=== PATIENT | male | born 1955 | race Caucasian/White ===

== ENCOUNTER 2016-09-17 16:03 | Emergency (ER) | payer BC, OTHER ==
[~2016-09-17] VITALS: Ht 180.3 cm; Wt 129.7 kg
[~2016-09-17 16:03] MED LIST: ACET-732 PO; ASPI-557 PO; CITA-49 PO; HYDR-4246 PO; IBUP-1724 PO; LISI-621 PO; MELO-273 PO; POLY17PO18 PO
[2016-09-17 16:06] VITALS: TEMP 98.9; Ht 180.3 cm; Wt 129.7 kg
--- OUTSIDE RECORDS SUMMARY | 2016-09-17 16:08 | XMS REPORT | Continuity of Care Document ---
Author Author [facility] Organization [facility] Address Unknown Phone Unavailable Support Name Relationship Address Phone ELIAS MOREON FACS, MD Caregiver [address] [place] [address] [place] [address] Unavailable GABBI CAM MD Caregiver [address] [place] [address] [place] [address] Unavailable DOMINIK BLANKENSHIP Next Of Kin [address] [place] [address] CP Insurance Providers Guarantor Marah Blankenship Address [address] [place] [address] CP Email DENIED/NO TO PT PORTAL [facility] Policy Number [id number] Subscriber's Name JuliannaMarah Calle Relationship 18 Self Group Number [id number] Payer Workers Compensation Policy Number [id number] Subscriber's Name TeddyMoy coronadoney Alva Relationship 18 Self Advance Directives Directive Response Recorded Date/Time Ordered Resuscitation Status Full Code 04/08/16 3:02pm Resuscitation Documents on File No 04/09/16 10:35am DPOA for Healthcare Only No 04/09/16 10:35am Living Will No 04/09/16 10:35am Problems Active Problems Medical Problem Onset Date Status Abnormal laboratory test result Unknown Acute Cough Unknown Acute Dyspnea Unknown Acute Pulmonary edema Unknown Acute Medications Current Home Medications Medication Dose Units Route Directions Days Qty Instructions Start Date Acetaminophen (Tylenol) 500 Mg Tablet 500 Mg Oral As Needed 05/05 Aspirin (Aspir 81) 81 Mg Tablet. 1 Tab Oral Daily 04/07/16 Citalopram Hydrobromide (Celexa) 20 Mg Tablet 20 Mg Oral Daily Hydrocodone/Acetaminophen ([place] 5-325 Tablet) 5-325 Tablet 1-2 Tab Oral Every 5 Hours as needed for Pain 40 Tablet 04/09/16 Ibuprofen 200 Mg Tablet 800 Mg Oral Every 6 Hours as needed for Pain 10 Days 160 Tablet 04/09/16 Lisinopril 20 Mg Tablet 20 Mg Oral Daily 08/09/14 Meloxicam 7.5 Mg Tablet 7.5 Mg Oral Daily 04/07/16 Polyethylene Glycol 3350 (Healthylax) 17 Gm Powd.pack 17 Gm Oral Daily for Constipation 14 Days 04/09/16 Past Home Medications Medication Directions Ordered Status None , 02/20/09 Discontinued Social History Social History Problem Response Recorded Date/Time Onset Date Status Reason for Hospitalization left inguinal hernia repair 04/09/2016 4:07pm Not Applicable Not Applicable Chewing Tobacco Status No 04/09/2016 10:36am Not Applicable Not Applicable Hx Substance Use No 04/09/2016 10:36am Not Applicable Not Applicable Hx Alcohol Use No 04/09/2016 10:36am Not Applicable Not Applicable Has the pt used tobacco in the last 12 months No 04/09/2016 10:36am Not Applicable Not Applicable Tobacco Usage none 11/16/2013 4:05am Not Applicable Not Applicable Query Response Start Date Stop Date Smoking Status Never smoker Hospital Discharge Instructions Instructions: Care Instructions: I was in the hospital because (patient own words): left inguinal hernia repair Discharge Diet: REGULAR Discharge Activity: Do not drive, operate machinery for 24 hours after surgery or while taking pain medication. No lifting more than 25 pounds for 4 weeks. Follow Up Appointments: Follow up with Dr. Moreno April 28 Pending Lab / Results: Will be notified Expected Signs/Symptoms: a "healing ridge" along the incision will form after 5-7 days. This will take many months to "soften" and go away. There is occasionally swelling and "bruised" appearance to the scrotum/penis, this will subside. Notify Physician If: 1. Call your surgeon if you are having problems relating to your surgery at [phone]. 2. Problems such as: Temp above 101.5 degrees You develop redness, excessive swelling of the incision, increasing pain or excessive foul smelling drainage. 3. If the office is closed, call [facility] at [phone] and have your Surgeon paged. During Business Hours:: Call your surgeon at at [phone]. After Business Hours:: If the office is closed, call [facility] at [phone] and have your Surgeon paged. Pain Management/Treatment: Follow prescriptions as prescribed Wound/Incision Care: Leave incision open to air. Do not pick or rub off the glue. Condition at time of discharge: Good Plan of Care Discharge Date 04/09/16 5:23pm Instructions/Education Provided [facility] Prescriptions See Medication Section Functional Status Query Response Date Recorded Ability to complete ADL's impeded by No change April 09, 2016 10:35am Allergies, Adverse Reactions, Alerts No known allergies. Immunizations Query Response on File Recorded Date/Time Hx Influenza Vaccination No 04/09/16 10:36am Hx Pneumococcal Vaccination No 04/09/16 10:36am Hx Influenza Vaccination No 04/09/16 10:36am Hx Tetanus Diptheria Y 200908/08/14 10:20pm Vital Signs Acute Vital Signs Vital Response Date/Time Temperature (Fahrenheit) 97.4 deg F (96.8 - 99.1) 04/09/2016 4:40pm Temperature (Calculated Celsius) 36.21072 degrees C (36.0 - 37.3) 04/09/2016 4:40pm Temperature Source Temporal 04/09/2016 4:40pm Pulse Rate (adult) 84 bpm (60 - 100) 04/09/2016 4:40pm Respiratory Rate 20 breaths/min (10 - 20) 04/09/2016 4:40pm O2 Sat by Pulse Oximetry 95 % (90 - 100) 04/09/2016 4:40pm Oxygen Delivery Method Room Air 04/09/2016 4:40pm Oxygen Flow Rate 2.00 L/min 04/09/2016 3:40pm Blood Pressure 159/81 mm Hg 04/09/2016 4:40pm Blood Pressure Source Automatic Cuff 04/09/2016 4:40pm Height (Feet) 5 feet 04/09/2016 10:15am Height (Inches) 11.00 inches 04/09/2016 10:15am Weight (Kilograms) 135.500 kg 04/09/2016 10:15am Body Mass Index (BMI) 41.7 04/09/2016 10:15am Results No known relevant diagnostic tests, laboratory data and/or discharge summary. Procedures Procedure Status Date Provider(s) Inguinal hernia repair Completed 04/09/16 ELIAS MORENO MD, FACS, CWS Encounters Encounter Location Arrival/Admit Date Discharge/Depart Date Attending Provider Departed [facility] 04/09/16 9:37am 04/09/16 5: 23pm ELIAS MORENO FACSS
--- OUTSIDE RECORDS SUMMARY | 2016-09-17 16:08 | XMS REPORT | Referral Summary ---
Author Author [facility] Organization [facility] Address Unknown Phone Unavailable Care Team Providers Care Brake Tester Name Role Phone Rachael Gray Primary Care Physician [phone] Encounter VC Date(s): 02/06/16 - 02/06/16 [facility] [address] [place] [address] Discharge Disposition: 01-Home or Self Care Attending Physician: Parker Gray MD Admitting Physician: Parker Gray MD Vital Signs Most recent to 1 oldest [Reference Range]: Blood Pressure 152/96 mmHg [90-140/60-90 mmHg] *HI* (02/06/16 9:52 AM) Problem List Condition Effective Dates Status Health Status Informant Acute Active confusion(Confirmed) Acute Active pain(Confirmed) Allergies(Confirmed) Active Angina(Confirmed) Active Asthma(Confirmed) Active Bleeding Active precautions(Confirme d)1 Bronchitis(Confirmed Active ) Chest wall Active pain(Confirmed) Contact dermatitis Active and other eczema, due to unspecified cause(Confirmed) GERD Active (gastroesophageal reflux disease)(Confirmed) Head Active trauma(Confirmed)2 Hearing Active loss(Confirmed) Hypertension(Confirm Active ed) Ingrown right Active greater toenail(Confirmed) Depression(Confirmed Active ) Morbid Active patient obesity(Confirmed) Severe obstructive Active sleep apnea(Confirmed) Osteoarthritis(Confi Active rmed) Rotator cuff tear, Active bilateral(Confirmed) Sinus Active infection(Confirmed) Sleep Active apnea(Confirmed) Ulcers(Confirmed) Active 1Problem added automatically by system based on initiation of Bleeding Precautions Plan of Care 2closed fracture nasal bones Allergies, Adverse Reactions, Alerts No Known Medication Allergies Medications aspirin 81 mg oral tablet 1 tabs, Oral, Daily, # 30 tabs, 0 Refill(s) Start Date: 08/10/14 Status: Ordered citalopram 20 mg oral tablet See Instructions, TAKE ONE TABLET BY MOUTH ONCE DAILY MUST LAST 30 DAYS., # 30 tabs, eRx: [facility], TAKE ONE TABLET BY MOUTH ONCE DAILY MUST LAST 30 DAYS. Start Date: 01/21/16 Status: Ordered Excedrin Migraine tabs, Oral, q6hr, 0 Refill(s) Start Date: 10/31/14 Status: Ordered lisinopril 10 mg oral tablet See Instructions, TAKE ONE TABLET BY MOUTH ONCE DAILY, # 30 tabs, eRx: [facility], TAKE ONE TABLET BY MOUTH ONCE DAILY Start Date: 01/21/16 Status: Ordered loratadine 10 mg, Oral, Daily, as needed for allergy symptoms, 0 Refill(s) Start Date: 08/09/14 Status: Ordered mefloquine 250 mg oral tablet 250 mg 1 tabs, Oral, qWeek, as directed by physician., X 10 weeks, # 10 tabs, 0 Refill(s), [facility], 2 weeks before trip, during trip and 4 weeks after trip., 1 tabs Oral qWeek,x10 weeks,Instr:as directed by physician. Start Date: 02/06/16 Stop Date: 04/16/16 Status: Ordered meloxicam 7.5 mg oral tablet See Instructions, TAKE ONE TABLET BY MOUTH TWICE DAILY, # 60 tabs, eRx: [facility], TAKE ONE TABLET BY MOUTH TWICE DAILY Start Date: 01/21/16 Status: Ordered triamcinolone 0.1% topical ointment 0.25 g, Topical, TID, # 30 g, 2 Refill(s), [facility] Start Date: 09/01/15 Status: Ordered Results No data available for this section Immunizations Vaccine Date Refusal Reason tetanus/diphth/pertuss (Tdap) adult/adol 02/06/16 tetanus-diphth toxoids (Td) adult/adol 12/26/97 Procedures Procedure Date Related Diagnosis Body Site S/P colonoscopy1 02/21/09 S/P sinus surgery 1998 H/O circumcision H/O lumpectomy, testicle2 H/O right knee surgery x2 S/P shoulder surgery, right 1WNL; repeat 10 years 2benign; kicked in groin Social History Social History Type Response Smoking Status Never smoker Assessment and Plan No data available for this section
--- OUTSIDE RECORDS SUMMARY | 2016-09-17 16:09 | XMS REPORT | Referral Summary ---
Author Author [facility] Organization [facility] Address Unknown Phone Unavailable Care Team Providers Care Power Driven Brush Maker Name Role Phone Rachael Gray Primary Care Physician [phone] Encounter VC Date(s): 04/28/16 - 04/28/16 [facility] [address] [place] [address] [place] [id number] Discharge Diagnosis: S/P inguinal hernia repair Discharge Disposition: 01-Home or Self Care Attending Physician: Ayden Castellano MD Admitting Physician: Ayden Castellano MD Vital Signs Most recent to 1 oldest [Reference Range]: Temperature Tympanic 36.5 degC [36.6-38.1 degC] *LOW* (04/28/16 2:39 PM) Problem List Condition Effective Dates Status Health [...] MUST LAST 30 DAYS., # 30 tabs, 4 Refill(s), eRx: [facility], TAKE ONE TABLET BY MOUTH ONCE DAILY MUST LAST 30 DAYS. Start Date: 03/23/16 Status: Ordered Excedrin Migraine tabs, Oral, q6hr, 0 Refill(s) Start Date: 10/31/14 Status: Ordered lisinopril 20 mg oral tablet See Instructions, TAKE ONE TABLET BY MOUTH ONCE DAILY, # 90 tabs, eRx: [facility] Start Date: 04/27/16 Status: Ordered loratadine 10 mg, Oral, Daily, as needed for allergy symptoms, 0 Refill(s) Start Date: 08/09/14 Status: Ordered meloxicam 7.5 mg oral tablet See Instructions, TAKE ONE TABLET BY MOUTH TWICE DAILY, # 60 tabs, eRx: [facility], TAKE ONE TABLET BY MOUTH TWICE DAILY Start Date: 03/26/16 Status: Ordered Quail 5 mg-325 mg oral tablet 1 tabs, Oral, q6hr, as needed for pain, # 30 tabs, 0 Refill(s) Start Date: 04/14/16 Status: Ordered triamcinolone 0.1% topical ointment 0.25 g, Topical, TID, # 30 g, 2 Refill(s), Pharmacy: [facility] Start Date: 09/01/15 Status: Ordered Results No data available for this section Immunizations Given and Recorded Vaccine Date Status Refusal Reason tetanus/diphth/pertuss (Tdap) adult/adol 02/06/16 Given tetanus-diphth toxoids (Td) adult/adol 12/26/97 Given Procedures Procedure Date Related Diagnosis Body Site Repair of inguinal hernia1 04/28/16 S/P colonoscopy2 02/21/09 S/P sinus surgery 1998 H/O circumcision H/O lumpectomy, testicle3 H/O right knee surgery x2 S/P shoulder surgery, right 1Left inguinal hernia repair, incidental lymph node biopsy benign. 2WNL; repeat 10 years 3benign; kicked in groin Social History Social History Type Response Smoking Status Never smoker Assessment and Plan Extracted from: Title: Office Visit Note Author: Ashley Hooper BRIM BUSTER Date: 04/28/16 Assessment/Plan 1.S/P inguinal hernia repair Inguinal repair looks good. The healing ridge will graduallysoften over time.Scrotal swelling will continue to decrease over time as well. Pathology of the lymph node indicates benignlymph node. No evidence of Hodgkin's lymphoma or metastatic carcinoma. Ordered: Postoperative Est [id number] Continue to use common sense. If an activity is causing pain, that is a sign that you need to "back off" and wait a little longer before lifting something that heavy or doing that activity. Do not hesitate to contact us with any surgical concerns. Continue with your general medical care through your primary care physician. Work releaseuse a lysing accompany form, written out fortomorrowwith a lifting restriction of 25 pounds through May 10. May return to work without restrictions on Aprilrea
--- OUTSIDE RECORDS SUMMARY | 2016-09-17 16:09 | XMS REPORT | Continuity of Care Document ---
Author Author [facility] Organization [facility] Address Unknown Phone Unavailable Allergies Active Description Code Type Severity Reaction Onset Reported/Identified Relationship to Patient Clinical Status Yes No Known Medication Allergies NKMA N/A N/A 11/01/2013 Yes No Known Medication Allergies NKMA N/A N/A 11/01/2013 Medications Medication Packaging Start Date Stop Date Route Dosage Sig triamcinolone topical(triamcinolone 0.1% topical cream) 1 roxanne 10/17/2013 10/17/2013 Topical 1 roxanne, Topical, TID, 30 g triamcinolone topical(triamcinolone 0.1% topical cream) 1 roxanne 10/17/2013 05/02/2014 Topical 1 roxanne, Topical, TID, 30 g fexofenadine(Rahel) 11/01/2013 05/02/2014 Oral 180 mg 180 mg , Oral, Daily fluticasone nasal(fluticasone 50 mcg/inh nasal spray) 2 sprays 11/01/2013 05/02/2014 Nasal 2 sprays, Nasal, Daily, 16 g citalopram(citalopram 20 mg oral tablet) 1 tabs 11/01/2013 Oral 20 mg 1 tabs, Oral, Daily, 30 tabs amLODIPine(amLODIPine 5 mg oral tablet) 1 tabs 11/01/201308/08 Oral 5 mg 1 tabs, Oral, Daily, 30 tabs lisinopril(lisinopril 10 mg oral tablet) 1 tabs 01/07/2014 Oral 10 mg 1 tabs, Oral, Daily, 30 tabs triamcinolone topical(triamcinolone 0.1% topical cream) 1 roxanne 05/02/2014 06/10/2014 Topical 1 roxanne, Topical, TID, 30 g amoxicillin(amoxicillin 875 mg oral tablet) 1 tabs 05/15/2014 05/25/2014 Oral 875 mg 1 tabs, Oral, BID, 20 tabs citalopram(citalopram 20 mg oral tablet) 1 tabs 05/17/2014 Oral 20 mg 1 tabs, Oral, Daily, rx must last 30 days, 30 tabs lisinopril(lisinopril 10 mg oral tablet) 06/10/20142014 See Instructions, TAKE ONE TABLET BY MOUTH ONCE DAILY, 30 tabs lisinopril(lisinopril 10 mg oral tablet) 07/15/20142014 See Instructions, TAKE ONE TABLET BY MOUTH ONCE DAILY, 30 tabs ibuprofen(ibuprofen) 1 tabs 08/06/2014 08/06/2014 Oral 600 mg 600 mg, Oral, Once ibuprofen(ibuprofen) 08/09/2014 08/10/2014 Oral 200 mg 200 mg, Oral, q6hr, PRN: as needed for pain lisinopril(lisinopril) 08/09/2014 08/16/2014 Oral 20 mg 20 mg, Oral, Daily citalopram(CeleXA) 08/09/2014 01/17/2015 Oral 20 mg 20 mg, Oral , Daily loratadine(loratadine) 08/09/2014 Oral 10 mg 10 mg, Oral, Daily, PRN: as needed for allergy symptoms morphine(morphine) 1 mL 08/09/2014 08/10/2014 IV Push 2 mg 2 mg, IV Push, q5min, PRN: Angina/Chest Pain nitroglycerin(nitroglycerin) 1 tabs 08/09/2014 08/10/2014 SubLingual 0.4 mg 0.4 mg, SubLingual, q5min, PRN: Angina/Chest Pain atorvastatin(atorvastatin) 1 tabs 08/09/2014 08/10/2014 Oral 10 mg 10 mg, Oral, Bedtime (once a day) lisinopril(lisinopril) 1 tabs 08/09/2014 08/10/2014 Oral 20 mg 20 mg, Oral, Daily citalopram(CeleXA) 1 tabs 08/09/2014 08/10/2014 Oral 20 mg 20 mg , Oral, Daily aspirin(aspirin) 1 tabs 08/09/2014 08/10/2014 Oral 325 mg 325 mg, Oral, Daily triamcinolone topical(triamcinolone 0.1% topical cream) 1 roxanne 08/09/2014 08/10/2014 Topical 1 roxanne, Topical, TID Sodium Chloride 0.9%(Sodium Chloride 0.9% 1,000 mL) 1,000 mL 08/09/2014 08/10/2014 IV 75 mL/hr, IV acetaminophen(Tylenol range dose) 2 tabs 08/10/2014 08/10/2014 Oral 1,000 mg 1,000 mg, Oral, q6hr, PRN: Pain Mild (1-3) aspirin(aspirin 81 mg oral tablet) 1 tabs 08/10/2014 Oral 81 mg 1 tabs, Oral, Daily, 30 tabs lisinopril(lisinopril 10 mg oral tablet) 08/16/20142014 See Instructions, TAKE ONE TABLET BY MOUTH ONCE DAILY, 30 tabs cyanocobalamin(cyanocobalamin 2500 mcg sublingual tablet) tabs 10/31/2014 02/28/2015 SubLingual mcg mcg=tabs, SubLingual, Daily, 0 Refill(s) lisinopril(lisinopril 10 mg oral tablet) 11/12/20142015 See Instructions, TAKE ONE TABLET BY MOUTH ONCE DAILY, 30 tabs, 5 Refill( s) cephalexin(Keflex 500 mg oral capsule) 1 caps 12/27/20142014 Oral 500 mg 500 mg=1 caps, Oral, q8hr, 30 caps, 0 Refill(s) meloxicam(Mobic 7.5 mg oral tablet) 1 tabs 12/27/20142014 Oral 7.5 mg 7.5 mg=1 tabs, Oral, BID, 60 tabs, 0 Refill(s) citalopram(citalopram 20 mg oral tablet) 01/17/20152014 See Instructions, TAKE ONE TABLET BY MOUTH ONCE DAILY. MUST LAST 30 DAYS., 30 tabs, 2 Refill(s) meloxicam(meloxicam 7.5 mg oral tablet) 1 tabs 03/03/201503/03 Oral 7.5 mg 7.5 mg=1 tabs, Oral, BID, 30 tabs, 0 Refill(s) meloxicam(meloxicam 7.5 mg oral tablet) 1 tabs 03/03/201506/20 Oral 7.5 mg 7.5 mg=1 tabs, Oral, BID, 60 tabs, 1 Refill(s) citalopram(citalopram 20 mg oral tablet) 04/22/20152015 See Instructions, TAKE ONE TABLET BY MOUTH ONCE DAILY. MUST LAST 30 DAYS., 30 tabs, 2 Refill(s) lisinopril(lisinopril 10 mg oral tablet) 05/19/20152015 See Instructions, TAKE ONE TABLET BY MOUTH ONCE DAILY, 30 tabs, 1 Refill( s) meloxicam(meloxicam 7.5 mg oral tablet) 06/20/20152015 See Instructions, TAKE ONE TABLET BY MOUTH TWICE DAILY, 60 tabs meloxicam(meloxicam 7.5 mg oral tablet) 07/21/20152015 See Instructions, TAKE ONE TABLET BY MOUTH TWICE DAILY, 60 tabs lisinopril(lisinopril 10 mg oral tablet) 07/21/20152015 See Instructions, TAKE ONE TABLET BY MOUTH ONCE DAILY, 30 tabs citalopram(citalopram 20 mg oral tablet) 07/21/20152015 See Instructions, TAKE ONE TABLET BY MOUTH ONCE DAILY. MUST LAST 30 DAYS., 30 tabs lisinopril(lisinopril 10 mg oral tablet) 08/21/20152015 See Instructions, TAKE ONE TABLET BY MOUTH ONCE DAILY, 30 tabs citalopram(citalopram 20 mg oral tablet) 08/21/20152015 See Instructions, TAKE ONE TABLET BY MOUTH ONCE DAILY MUST LAST 30 DAYS., 30 tabs lisinopril(lisinopril 10 mg oral tablet) 09/23/20152015 See Instructions, TAKE ONE TABLET BY MOUTH ONCE DAILY, 30 tabs citalopram(citalopram 20 mg oral tablet) 09/23/20152015 See Instructions, TAKE ONE TABLET BY MOUTH ONCE DAILY MUST LAST 30 DAYS., 30 tabs lisinopril(lisinopril 10 mg oral tablet) 10/23/20152015 See Instructions, TAKE ONE TABLET BY MOUTH ONCE DAILY, 30 tabs, 2 Refill( s) meloxicam(meloxicam 7.5 mg oral tablet) 10/23/20152015 See Instructions, TAKE ONE TABLET BY MOUTH TWICE DAILY, 60 tabs, 2 Refill (s) citalopram(citalopram 20 mg oral tablet) 10/23/20152015 See Instructions, TAKE ONE TABLET BY MOUTH ONCE DAILY MUST LAST 30 DAYS., 30 tabs, 2 Refill(s) lisinopril(lisinopril 10 mg oral tablet) 01/21/20162015 See Instructions, TAKE ONE TABLET BY MOUTH ONCE DAILY, 30 tabs meloxicam(meloxicam 7.5 mg oral tablet) 01/21/20162015 See Instructions, TAKE ONE TABLET BY MOUTH TWICE DAILY, 60 tabs citalopram(citalopram 20 mg oral tablet) 01/21/20162015 See Instructions, TAKE ONE TABLET BY MOUTH ONCE DAILY MUST LAST 30 DAYS., 30 tabs tetanus/diphth/pertuss (Tdap) adult/adol(Boostrix (Tdap) intramuscular suspension) 0.5 mL 02/06/2016 02/06/2016 IntraMuscular 0.5 mL , IntraMuscular, Once mefloquine(mefloquine 250 mg oral tablet) 1 tabs 02/06/2016 Oral 250 mg 250 mg=1 tabs, Oral, qWeek, for 10 weeks, as directed by physician., 10 tabs, 0 Refill(s) meloxicam(meloxicam 7.5 mg oral tablet) 02/20/20162015 See Instructions, TAKE ONE TABLET BY MOUTH TWICE DAILY, 60 tabs citalopram(citalopram 20 mg oral tablet) 02/20/20162015 See Instructions, TAKE ONE TABLET BY MOUTH ONCE DAILY MUST LAST 30 DAYS., 30 tabs citalopram(citalopram 20 mg oral tablet) 03/23/2016 See Instructions, TAKE ONE TABLET BY MOUTH ONCE DAILY MUST LAST 30 DAYS., 30 tabs , 4 Refill(s) meloxicam(meloxicam 7.5 mg oral tablet) 03/26/20162016 See Instructions, TAKE ONE TABLET BY MOUTH TWICE DAILY, 60 tabs meloxicam(meloxicam 7.5 mg oral tablet) 06/28/2016 See Instructions, TAKE ONE TABLET BY MOUTH TWICE DAILY, 60 tabs Problems Date Dx Coded Attending Type Code Diagnosis Diagnosed By 09/09/2015 Igor Pack MD Ot R07.81 PLEURODYNIA 09/09/2015 Igor Pack MD Ot R07.81 PLEURODYNIA 09/23/2015 Igor Pack MD Ot R07.81 PLEURODYNIA Procedures Results Encounters ACCT No. Visit Date/Time Discharge Status Pt. Type Provider Facility Loc./Unit Complaint [id number] 07/06/2013 15:58:00 07/06/2013 23 :59:59 CLS Outpatient [id number] 06/28/2013 15:49:00 06/28/2013 23 :59:59 CLS Outpatient [id number] 05/07/2013 13:22:00 05/07/2013 23 :59:59 CLS Outpatient [id number] 04/30/2013 13:32:00 04/30/2013 23 :59:59 CLS Outpatient
--- OUTSIDE RECORDS SUMMARY | 2016-09-17 16:10 | XMS REPORT | Referral Summary ---
Author Author [facility] Organization [facility] Address Unknown Phone Unavailable Care Team Providers Care Precision Grinder Name Role Phone Rachael Gray Primary Care Physician [phone] Encounter VC Date(s): 03/24/16 - 03/24/16 [facility] [address] [place] [address] CRISTINA Blank [id number] Discharge Diagnosis: Left inguinal hernia Discharge Disposition: 01-Home or Self Care Attending Physician: Ayden Castellano MD Admitting Physician: Ayden Castellano MD Vital Signs Most recent to 1 oldest [Reference Range]: Peripheral Pulse 82 bpm Rate [60-100 bpm] (03/24/16 9:50 AM) Blood Pressure 140/80 mmHg [90-140/60-90 mmHg] (03/24/16 9:50 AM) SpO2 98 % (03/24/16 9:50 AM) Problem List Condition Effective Dates Status [...] DAYS., # 30 tabs, 4 Refill(s), eRx: [id number], TAKE ONE TABLET BY MOUTH ONCE DAILY MUST LAST 30 DAYS. Start Date: 03/23/16 Status: Ordered Excedrin Migraine tabs, Oral, q6hr, 0 Refill(s) Start Date: 10/31/14 Status: Ordered lisinopril 20 mg oral tablet 20 mg 1 tabs, Oral, Daily, # 90 tabs, 0 Refill(s), Pharmacy: [facility] 242 Start Date: 02/09/16 Status: Ordered loratadine 10 mg, Oral, Daily, as needed for allergy symptoms, 0 Refill(s) Start Date: 08/09/14 Status: Ordered mefloquine 250 mg oral tablet 250 mg 1 tabs, Oral, qWeek, as directed by physician., X 10 weeks, # 10 tabs, 0 Refill(s), Pharmacy: [facility], 2 weeks before trip, during trip and 4 weeks after trip., 1 tabs Oral qWeek,x10 weeks,Instr:as directed by physician. Start Date: 02/06/16 Stop Date: 04/16/16 Status: Ordered meloxicam 7.5 mg oral tablet See Instructions, TAKE ONE TABLET BY MOUTH TWICE DAILY, # 60 tabs, eRx: [id number], TAKE ONE TABLET BY MOUTH TWICE DAILY Start Date: 02/20/16 Status: Ordered triamcinolone 0.1% topical ointment 0.25 g, Topical, TID, # 30 g, 2 Refill(s), Pharmacy: [facility] 2428 Start Date: 09/01/15 Status: Ordered Results [...] smoker Assessment and Plan Extracted from: Title: Ambulatory Patient Education Author: Ayden Castellano MD Date: Gastroenterology Inguinal Hernia, Adult Muscles help keep everything in the body in its proper place. But if a weak spot in the muscles develops, something can poke through. That is called a hernia. When this happens in the lower part of the belly (abdomen), it is called an inguinal hernia. (It takes its name from a part of the body in this region called the inguinal canal.) A weak spot in the wall of muscles lets some fat or part of the small intestine bulge through. An inguinal hernia can develop at any age. Men get them more often than women. CAUSES In adults, an inguinal hernia develops over time. It can be triggered by: Suddenly straining the muscles of the lower abdomen. Lifting heavy objects. Straining to have a bowel movement. Difficult bowel movements ( constipation) can lead to this. Constant coughing. This may be caused by smoking or lung disease. Being overweight. Being . Working at a job that requires long periods of standing or heavy lifting. Having had an inguinal hernia before. One type can be an emergency situation. It is called a strangulated inguinal hernia. It develops if part of the small intestine slips through the weak spot and cannot get back into the abdomen. The blood supply can be cut off. If that happens, part of the intestine may . This situation requires emergency surgery. SYMPTOMS Often, a small inguinal hernia has no symptoms. It is found when a healthcare provider does a physical exam. Larger hernias usually have symptoms. In adults, symptoms may include: A lump in the groin. This is easier to see when the person is standing. It might disappear when lying down. In men, a lump in the scrotum. Pain or burning in the groin. This occurs especially when lifting, straining or coughing. A dull ache or feeling of pressure in the groin. Signs of a strangulated hernia can include: A bulge in the groin that becomes very painful and tender to the touch. A bulge that turns red or purple. Fever, nausea and vomiting. Inability to have a bowel movement or to pass gas. DIAGNOSIS To decide if you have an inguinal hernia, a healthcare provider will probably do a physical examination. This will include asking questions about any symptoms you have noticed. The healthcare provider might feel the groin area and ask you to cough. If an inguinal hernia is felt, the healthcare provider may try to slide it back into the abdomen. Usually no other tests are needed. TREATMENT Treatments can vary. The size of the hernia makes a difference. Options include: Watchful waiting. This is often suggested if the hernia is small and you have had no symptoms. No medical procedure will be done unless symptoms develop. You will need to watch closely for symptoms. If any occur, contact your healthcare provider right away. Surgery. This is used if the hernia is larger or you have symptoms. Open surgery. This is usually an outpatient procedure (you will not stay overnight in a hospital). An cut (incision) is made through the skin in the groin. The hernia is put back inside the abdomen. The weak area in the muscles is then repaired by herniorrhaphy or hernioplasty. Herniorrhaphy: in this type of surgery, the weak muscles are sewn back together. Hernioplasty: a patch or mesh is used to close the weak area in the abdominal wall. Laparoscopy. In this procedure, a surgeon makes small incisions. A thin tube with a tiny video camera (called a laparoscope) is put into the abdomen. The surgeon repairs the hernia with mesh by looking with the video camera and using two long instruments. HOME CARE INSTRUCTIONS After surgery to repair an inguinal hernia: You will need to take pain medicine prescribed by your healthcare provider. Follow all directions carefully. You will need to take care of the wound from the incision. Your activity will be restricted for awhile. This will probably include no heavy lifting for several weeks. You also should not do anything too active for a few weeks. When you can return to work will depend on the type of job that you have. During "watchful waiting" periods, you should: Maintain a healthy weight. Eat a diet high in fiber (fruits, vegetables and whole grains). Drink plenty of fluids to avoid constipation. This means drinking enough water and other liquids to keep your urine clear or pale yellow. Do not lift heavy objects. Do not stand for long periods of time. Quit smoking. This should keep you from developing a frequent cough. SEEK MEDICAL CARE IF: A bulge develops in your groin area. You feel pain, a burning sensation or pressure in the groin. This might be worse if you are lifting or straining. You develop a fever of more than 100.5 F (38.1 C). SEEK IMMEDIATE MEDICAL CARE IF: Pain in the groin increases suddenly. A bulge in the groin gets bigger suddenly and does not go down. For men, there is sudden pain in the scrotum. Or, the size of the scrotum increases. A bulge in the groin area becomes red or purple and is painful to touch. You have nausea or vomiting that does not go away. You feel your heart beating much faster than normal. You cannot have a bowel movement or pass gas. You develop a fever of more than 102.0 F (38.9 C). This information is not intended to replace advice given to you by your health care provider. Make sure you discuss any questions you have with your health care provider. Document Released: 08/28/2009 Document Revised: 07/03/2012 Document Reviewed: [employer] Interactive Patient Education 2016 [employer] No follow up information was provided. Extracted from: Title: Office Visit Note Author: Ayden Castellano MD Date: 03/24/16 Assessment/Plan 1.Left inguinal hernia Ordered: Basic Metabolic Panel CBC Hemogram Office Visit Level 4 New [address] Plan: Left inguinal herniorrhaphyviaamesh plug technique. I did review the patient's chart includinga note performed by[facility] fromMarch 23, 2016.I informed the patient that I concurwith this physician that he has aleft inguinal hernia.Recommended to the patient that he should undergo an electiveleft inguinal herniorrhaphy. I spent a fair amount of time discussing herniasas an entity with the patient. I did discuss in detail with the patient what aninguinal herniorrhaphy with mesh entailed and its associated risks including but not inclusive of bleeding and infection, as well as potential for recurrence. The patient understood and was scheduled to undergoleft inguinal herniorrhaphy in the near future.
--- OUTSIDE RECORDS SUMMARY | 2016-09-17 16:10 | XMS REPORT | Continuity of Care Document ---
Author Author [facility] Organization [facility] Address Unknown Phone Unavailable Support Name Relationship Address Phone KENDRICK COHEN MD Caregiver [facility] [address] [place] [address] Unavailable GABBI CAM MD Caregiver [address] [place] [address] [place] [phone] [id number] Next Of Kin [address] [place], [place] [id number] CP Insurance Providers Payer Name Policy Number Subscriber Name Relationship [facility] [id number] Marah Blankenship 20 Self Problems Medical Problems Problem Onset Date Status Cough Unknown Active Dyspnea Unknown Active Pulmonary edema Unknown Active Medications Medication Dose Route Sig Days/Qty Instructions Order Date Discontinued Date Status [None] 02/20/09 05/05/11 Discontinued Acetaminophen 500 Mg PO NEEDED 05/05/11 Active Citalopram Hydrobromide 20 Mg PO DAILY 03/03/13 Active Triamterene/Hydrochlorothiazid 1 Each PO DAILY 03/03/13 Active Social History Social History Problem Response Recorded Date/Time Smoking Status Unknown if ever smoked 11/16/2013 3:44am Hx Substance Use No 11/16/2013 3:44am Hx Alcohol Use No 11/16/2013 3:44am Query Response Start Date Stop Date Smoking Status Never smoker Hospital Discharge Instructions No hospital discharge instructions. Plan of Care No plan of care. Functional Status Query Response Date Recorded Physical Hygiene Self November 16, 2013 3:44am Disabilities None November 16, 2013 3:44am Devices Used Glasses November 16, 2013 3:44am Dressing Self November 16, 2013 3:44am Ambulation Self November 16, 2013 3:44am Diet Self November 16, 2013 3:44am Mental Status Alert November 16, 2013 5:32am Disabilities None November 16, 2013 3:44am Devices Used Glasses November 16, 2013 3:44am Physical Hygiene Self November 16, 2013 3:44am Dressing Self November 16, 2013 3:44am Ambulation Self November 16, 2013 3:44am Diet Self November 16, 2013 3:44am Allergies, Adverse Reactions, Alerts Allergen Type Severity Reaction Status Last Updated No Known Allergies Active 11/16/13 Immunizations Name Given Type Hx Influenza Vaccination No Historical Hx Pneumococcal Vaccination No Historical Hx Influenza Vaccination No Historical Hx Tetanus Diptheria Y 2010 Historical Vital Signs Acute Vital Signs Vital Response Date/Time Temperature (Fahrenheit) 96.8 deg F (96.8 - 99.1) Temperature (Calculated Celsius) 36.72867 degrees C (36.0 - 37.3) Pulse Rate (adult) 71 bpm (60 - 100) Respiratory Rate 16 breaths/min (10 - 20) O2 Sat by Pulse Oximetry 99 % (90 - 100) Oxygen Flow Rate 2 L/min Blood Pressure 127/72 mm Hg Height 5 ft 11 in Weight 294 lb Body Mass Index 41.0 kg/m^2 Results Test Source Date Result Interp. Ref. Range Comments Alanine Aminotransferase (ALT/SGPT) November 16, 2013 4:30am 109 U/L H 21- 72 Albumin November 16, 2013 4:30am 3.8 G/DL N 3.5-5.0 Albumin/Globulin Ratio November 16, 2013 4:30am 1.5 RATIO N 1.1-2.2 Alkaline Phosphatase November 16, 2013 4:30am 67 U/L N 38-126 Amylase Level March 03, 2013 4:43pm 52 U/L N 30-110 Anion Gap November 16, 2013 4:30am 8 MEQ/L N 5-15 Aspartate Amino Transf (AST/SGOT) November 16, 2013 4:30am 80 U/L H 17-59 B-Type Natriuretic Peptide August 14, 2008 11:53am 16 PG/ML N 15-100 COMMENT MAY RUN FROM BLOOD ALREADY DRAWN BUN/Creatinine Ratio November 16, 2013 4:30am 23 RATIO N 6-26 Basophils # (Auto) November 16, 2013 4:30am 0.0 T/MM3 N 0-0.2 Basophils (%) (Auto) November 16, 2013 4:30am 0.2 % N 0-2 Blood Urea Nitrogen November 16, 2013 4:30am 23.0 MG/DL H 9-20 Calcium Level November 16, 2013 4:30am 8.7 MG/DL N 8.4-10.2 Calculated Osmolality November 16, 2013 4:30am 280 MOSM/KG N 261-280 Carbon Dioxide Level November 16, 2013 4:30am 27 MEQ/L N 22-30 Chemistry Specimen Hemolysis November 16, 2013 4:30am < 15 0-25 0-25: No Hemolysis.26-70: Slight Hemolysis - can falsely elevate K and Urine Protein. 71-285: Moderate Hemolysis - can falsely elevate K, Troponin I, CA 19-9, PTH, CSF GLucose, and Urine Protein, and can falsely decrease Phenytoin. 286-999: Gross Hemolysis - can falsely elevate K, Troponin I, CA 19-9, PTH, CSF Glucose, and Urine Protine, and can falsely decrease Phenytoin. Recommend specimen recollection. Chloride Level November 16, 2013 4:30am 108 MEQ/L H 98-107 Creatinine November 16, 2013 4:30am 1.0 MG/DL N 0.8-1.5 D-Dimer November 16, 2013 4:30am 97 NG/ML N 0-230 <224 NG/ML=PRESUMPTIVE NEGATIVE FOR PE OR DVT>224 NG/ML=ADDITIONAL EVALUATION FOR PE OR DVT RECOMMENDED Eosinophils # (Auto) November 16, 2013 4:30am 0.3 T/MM3 N 0-0.5 Eosinophils (%) (Auto) November 16, 2013 4:30am 5.1 % H 0-4 Globulin November 16, 2013 4:30am 2.6 G/DL N 2.4-3.6 Glomerular Filtration Rate Calc November 16, 2013 4:30am 77 - Glucose Level November 16, 2013 4:30am 118 MG/DL H 75-110 Hematocrit November 16, 2013 4:30am 37.3 % L 41-53 Hemoglobin November 16, 2013 4:30am 12.9 GM/DL L 13.5-17.5 Icterus Index November 16, 2013 4:30am < 2 0-7 Immature Granulocyte # (Auto) November 16, 2013 4:30am 0.01 T/MM3 N 0.00- 0.03 Immature Granulocyte % (Auto) November 16, 2013 4:30am 0.2 % N 0.0-0.5 Lab Scanned Report May 14, 2011 3:58pm [facility]FER[facility] LAB [id number] - Lipase March 03, 2013 4:43pm 160 U/L N 23-300 Lymphocytes # (Auto) November 16, 2013 4:30am 1.8 T/MM3 N 1-4.8 Lymphocytes (%) (Auto) November 16, 2013 4:30am 32.1 % N 23-45 Mean Corpuscular Hemoglobin November 16, 2013 4:30am 29.9 UUG N 26-34 Mean Corpuscular Hemoglobin Concent November 16, 2013 4:30am 34.6 GM/DL N 31 -37 Mean Corpuscular Volume November 16, 2013 4:30am 86.5 UM3 N 80-100 Mean Platelet Volume November 16, 2013 4:30am 9.6 UM3 N 9.4-12.4 Monocytes # (Auto) November 16, 2013 4:30am 0.6 T/MM3 N 0-0.8 Monocytes (%) (Auto) November 16, 2013 4:30am 10.1 % H 0-9.0 XR-Gfr-E-Type Natriuretic Peptide November 16, 2013 4:30am 487 PG/ML H 0- 175 Rule in cut points: <50 years old=450; 50-75 years old=900; >75 years old=1800; When utilizing ProBNP rule-in cut points, adjustment for impaired renal function is typically not required. Neutrophils # (Auto) November 16, 2013 4:30am 2.9 T/MM3 N 1.8-7.7 Neutrophils (%) (Auto) November 16, 2013 4:30am 52.3 % N 33-66 Platelet Count November 16, 2013 4:30am 178 T/MM3 N 130-400 Potassium Level November 16, 2013 4:30am 3.5 MEQ/L L 3.6-5 RDW Standard Deviation November 16, 2013 4:30am 39.0 FL N 36.9-50.2 Red Blood Count November 16, 2013 4:30am 4.31 M/MM3 L 4.50-5.90 Sodium Level November 16, 2013 4:30am 143 MEQ/L N 134-144 Thyroid Stimulating Hormone (TSH) August 14, 2008 12:00pm 1.28 MIU/ML N 0.47-4.68 Thyroxine (T4) August 14, 2008 12:00pm 5.8 UG/DL N 5.5-11 Total Bilirubin November 16, 2013 4:30am 0.40 MG/DL N 0.20-1.30 Total Protein November 16, 2013 4:30am 6.4 G/DL N 6.3-8.2 Troponin I November 16, 2013 4:30am 0.035 ng/ml N 0-0.12 Turbidity November 16, 2013 4:30am < 20 0-20 Urine Bilirubin May 05, 2011 4:50pm Negative - Has specimen been collected/obtained? Y Urine Blood May 05, 2011 4:50pm Negative - Has specimen been collected/obtained? Y Urine Collection Type May 05, 2011 4:50pm Voided - Has specimen been collected/obtained? Y Urine Color May 05, 2011 4:50pm Yellow - Has specimen been collected/obtained? Y Urine Drug Screen (T) May 05, 2011 6:43pm Sent out - Urine Glucose (UA) May 05, 2011 4:50pm Negative - Has specimen been collected/obtained? Y Urine Ketones May 05, 2011 4:50pm Negative - Has specimen been collected/obtained? Y Urine Leukocyte Esterase May 05, 2011 4:50pm Negative - Has specimen been collected/obtained? Y Urine Microscopic Not Indicated May 05, 2011 4:50pm Not indicated - Has specimen been collected/obtained? Y Urine Nitrite May 05, 2011 4:50pm Negative - Has specimen been collected/obtained? Y Urine Protein May 05, 2011 4:50pm Negative - Has specimen been collected/obtained? Y Urine Specific Alpine May 05, 2011 4:50pm 1.025 - Has specimen been collected/obtained? Y Urine Turbidity May 05, 2011 4:50pm Clear - Has specimen been collected/obtained? Y Urine Urobilinogen May 05, 2011 4:50pm Normal EU/DL - Has specimen been collected/obtained? Y Urine pH May 05, 2011 4:50pm 5.0 - Has specimen been collected/ obtained? Y White Blood Count November 16, 2013 4:30am 5.5 T/MM3 N 4.5-11.0 Procedures No known history of procedures. Encounters Encounter Location Date/Time Registered Emergency Room [facility] 11/16/13 3:44am Recent Diagnosis
--- NOTE | 2016-09-17 16:32 | ERPDOC ---
Departure Disposition Decision Date: September 17, 2016 Disposition Decision Time: 17:04 Disposition: 01 DISCHARGED HOME, SELF-CARE Impression Impression Impression: Primary Impression: Chest pain Chest pain type: other chest pain Qualified Codes: R07.89 - Other chest pain Additional Impressions: Paresthesia of arm Varicose vein of leg Severity: Moderate Condition: Improved Seen By: Mid-level only Referrals: GABBI CAM MD (Family) Patient Instructions: Palpitations (ED), Varicose Veins (ED) Problems/Meds/Labs Reviewed?: Yes Medications reviewed and manag: Yes Additional Instructions: Your labs, chest x-ray and EKG did not indicate any acute findings. You are mildly volume depleted. Continue to take your already prescribed daily low dose aspirin. Wear compressing stockings as discussed. You may apply warm compresses to your leg as needed and elevate as needed. Follow as scheduled with your PCP next week. Follow treatment plan. Follow up care ordered?: Yes Mental Status: Alert, Oriented HPI - General Medical General Chief Complaint: Chest Pain Stated Complaint: STINGING IN CHEST,SORE SPOT LEG,ARM WEAKNESS Time Seen by Provider: 16:25 Source: patient HPI - General Medical Initial Comments 60 YO M presents to ED with report of "stinging sensation" in anterior chest for greater than 1 month which he rates 1/10. Right lateral anterior leg pain for greater than one month and bilateral "numbness" in arms when he wakes up for greater than one month. Patient is able to move his arms/hands when they feel numb. Was talking to someone today and they told him that "these were the same symptoms that they had before they had a heart attack". Patient denies fever, chills, SOA, cough, nausea, vomiting, calf tenderness, neck pain. Patient is not currently having in arm numbness. Pain Scale: Now: 1/10 (chest ), 5/10 Associated Symptoms: chest pain, DENIES: cough, diaphoresis, fever/chills, headaches, loss of appetite, malaise, nausea/vomiting, rash, seizure, shortness of breath, syncope, weakness Allergies: Coded Allergies: No Known Allergies (Unverified , 09/17/16) Past History Past Medical History Metabolic: hypertension ENMT: sleep apnea Cardiac: other (PVCs), DENIES: angina Respiratory: DENIES: asthma GI: ulcers Male: DENIES: renal insufficiency Neurological: other (arachnoid cyst), DENIES: seizures Musculoskeletal: osteoarthritis Psychological: depression Surgical History Joint: knee, shoulder Family History Family PMH: FOUND: other (noncontributory) Vaccines Hx Influenza Vaccination: No Hx Pneumococcal Vaccination: No Hx Tetanus Diptheria: Yes (2009) Social History Does patient use chewing tobac: No Second Hand Exposure: No Substance Use Type: does not use Substance last used: unknown Last Drink: unknown Current Occupational Status: employed Review of Systems Constitutional Constitutional: DENIES: chills, dizziness, fever, weakness Eyes General: DENIES: erythema, exudate Lids/Accessories: DENIES: erythema, swelling Vision: DENIES: blurring ENMT Ears: DENIES: pain Sinuses: DENIES: congestion, rhinorrhea Mouth/Throat: DENIES: sore throat Cardiovascular Cardiac: chest pain, see HPI, DENIES: murmur Rhythm/Rate: DENIES: palpitations Pulmonary Respiratory: DENIES: cough, dyspnea GI Upper Abdomen: DENIES: nausea, pain, vomiting Lower Abdomen: DENIES: diarrhea, pain General: DENIES: dysuria, pain Musculoskeletal General: see HPI, tenderness, DENIES: joint pain, pain Integumentary Skin: DENIES: color change, itching, rash Neurological General: numbness, tingling, DENIES: ataxia, change in strength, paralysis/ paresis, weakness Psychiatric Psychiatric: DENIES: anxiety, depression, nervousness Physical Exam General General Nourishment: well nourished, well developed, no acute distress, adult General Body Habitus: well groomed Vitals and Pain First Documented Vital Signs Date Time Temp Pulse Resp B/P Pulse Ox O2 Delivery O2 Flow Rate FiO2 09/17/16 16:06 98.9 86 18 135/80 94 Room Air Weight: Kilograms: 129.700 Height (feet): 5 Height (inches): 11.00 Triage Pain Scale: Eyes (brief) Eyes Brief: found: EOMI, PERRL ENMT (brief) ENMT Brief: FOUND: mucosa moist, NOT FOUND: nasal exudate, nasal swelling, pharnyx erythema Neck (brief) Neck: FOUND: trachea midline, NOT FOUND: adenopathy, thyromegaly Respiratory (brief) Respiratory: FOUND: clear all bradshaw, equal bilaterally, symmetrical Cardiovascular (brief) Cardiac: FOUND: regular rate, regular rhythm Cardiovascular Peripheral Pulses : Peripheral Pulses Side: right Peripheral Pulses Location: Dorsalis Pedis Pulses Strength: 2+ Edema : Edema Site: bilateral Edema Location: leg Edema Degree: 0 Abdomen (brief) Abdominal Brief: FOUND: bowel normo active x4, soft, NOT FOUND: tender Musculoskeletal Extremity #1: Side: Right Extremity: leg Extremity Findings: FOUND: discoloration (varicosity had area where patient reports pain on right lateral garcia.), pain (TTP over lateral garcia), NOT FOUND: deformity, swelling Comments Right calf 17 1/2 in Left calf 17 3/4 in Extremity #2: Side: Bilateral Integumentary (brief) Integumentary Brief: FOUND: dry, pink, warm Neurologic Mental Status: FOUND: alert, oriented Cranial Nerves: NOT FOUND: facial asymmetry Motor : Motor Side: bilateral Motor Location: foot extension, foot flexion, wound care coordinator strength Motor Degree: 5 Sensation: FOUND: soft touch intact x4 ext Cerebellar: FOUND: tandem walk DTR's : DTR Side: bilateral DTR Location: Triceps, Patellar DTR Grade: 2+ Psychiatric (brief) Psychiatric Brief: NOT FOUND: normal affect (anxious) Differential Diagnoses Considering: Hypo/Hyperglycemia, Hypo/Hyperkalemia, Hypo/Hypernatremia, Metabolic, TIA Considering: Acute LA, Anxiety/Panic, CHF, Costochondritis, Esophageal Spasm, GERD, Pneumonia, Pulmonary Edema, Muscle Spasm, Other (DVT, OA of neck) Progress Results/Orders Orders Procedure Category Date Status Time Cbc W/Auto LAB 09/17/16 Complete Diff-Reflex Manual 16:25 Cmp - Comprehensive LAB 09/17/16 Complete Metabolic 16:25 Probnp LAB 09/17/16 Complete 16:25 Troponin I W LAB 09/17/16 Complete Hemolysis Index 16:25 EKG EKG 09/17/16 Logged 16:25 Iv Lock (Ed Only) EDM 09/17/16 Transmitted 16:25 D-Dimer LAB 09/17/16 Complete Normal Saline (Normal PHA 09/17/16 Complete Saline Iv) 17:15 Chest 1 View RAD 09/17/16 Taken Lab Results Laboratory Tests Test 09/17/16 16:19 White Blood Count 5.6T/MM3 Red Blood Count 4.85M/MM3 Hemoglobin 14.5GM/DL Hematocrit 40.7% Mean Corpuscular Volume 83.9UM3 Mean Corpuscular Hemoglobin 29.9UUG Mean Corpuscular Hemoglobin Concent 35.6GM/DL RDW Standard Deviation 37.7FL Platelet Count 207T/MM3 Mean Platelet Volume 9.1UM3 Immature Granulocyte % (Auto) 0.0% Neutrophils (%) (Auto) 54.5% Lymphocytes (%) (Auto) 33.9% Monocytes (%) (Auto) 9.6% Eosinophils (%) (Auto) 1.8% Basophils (%) (Auto) 0.2% Absolute Immature Granulocyte (auto 0.00T/MM3 Absolute Neutrophils (auto) 3.1T/MM3 Absolute Lymphocytes (auto) 1.9T/MM3 Absolute Monocytes (auto) 0.5T/MM3 Absolute Eosinophils (auto) 0.1T/MM3 Absolute Basophils (auto) 0.0T/MM3 D-Dimer 159NG/ML Turbidity < 20 Sodium Level 148MEQ/L Potassium Level 3.9MEQ/L Chloride Level 108MEQ/L Carbon Dioxide Level 26MEQ/L Anion Gap 14MEQ/L Blood Urea Nitrogen 23.0MG/DL Creatinine 0.9MG/DL Glomerular Filtration Rate Calc 87 BUN/Creatinine Ratio 26RATIO Glucose Level 104MG/DL Calculated Osmolality 288MOSM/KG Calcium Level 9.4MG/DL Total Bilirubin 0.90MG/DL Icterus Index < 2 Aspartate Amino Transf (AST/SGOT) 38U/L Alanine Aminotransferase (ALT/SGPT) 56U/L Alkaline Phosphatase 67U/L Troponin I < 0.012ng/ml PW-Fhd-I-Type Natriuretic Peptide 68PG/ML Total Protein 7.3G/DL Albumin 4.7G/DL Globulin 2.6G/DL Albumin/Globulin Ratio 1.8RATIO Chemistry Specimen Hemolysis < 15 Medications Current ED Medications Sodium Chloride (Normal Saline IV) 1,000 ml @ 0 mls/hr Q0M ONCE IV Last administered on 09/17/16t 17:09; Start 09/17/16 at 17:15; Stop 09/17/16 at 17:16 ; Status DC Progress Progress CBC unremarkable CMP unremarkable except for NA 148, chloride 103 and BUN 23.0 indicating mild volume depletion. Trop < 0.012 D-dimer 159 Patient report he is feeling better after fluids. I discussed labs, EKG, CXR with patient. I have no specific etiology for "chest stinging" however patient has normal troponin and d-dimer. Patient has had chest stinging for great than 1 month so I do not feel this is cardiac in origin. Patient verbalized understanding of treatment plan, follow as scheduled with PCP next week and return precautions. EKG EKG : Rate: 60-100 Rhythm: sinus [place]: normal QRS: normal Intervals: normal ST/T: non-specific changes Other: PVC Interpreted by: signing physician (Dr. Mercado) EKG Comments Similar to previous 08-08-14 Xray Xray : Xray: CXR Portable (no acute cardiopulmonary findings(Dr. Mercado)) HORTENSIA BROOKS [employer]T [employer] FINISHER September 17, 2016 16:32
[2016-09-17] MEDS ORDERED: HYDR-4246 PO (16:33)
[2016-09-17] MEDS ORDERED: IBUP-1724 PO (16:33)
--- NOTE | 2016-09-17 16:34 | NUR ---
MANISHA BOURGEOIS IN
[2016-09-17 16:35] LABS: BASOPHILS % (AUTO) 0.2 % (0-2); EOSINOPHILS # (AUTO) 0.1 T/MM3 (0-0.5); EOSINOPHILS % (AUTO) 1.8 % (0-4); HCT - HEMATOCRIT 40.7 % (41-53); HGB - HEMOGLOBIN 14.5 GM/DL (13.5-17.5); LYMPHOCYTES # (AUTO) 1.9 T/MM3 (1-4.8); LYMPHOCYTES % (AUTO) 33.9 % (23-45); MEAN CORPUSCULAR HGB 29.9 UUG (26-34); MEAN CORPUSCULAR HGB CONC(MCHC 35.6 GM/DL (31-37); MEAN CORPUSCULAR VOLUME 83.9 UM3 (80-100); MEAN PLATELET VOLUME 9.1 UM3 (9.4-12.4); MONOCYTES # (AUTO) 0.5 T/MM3 (0-0.8); MONOCYTES % (AUTO) 9.6 % (0-9.0); NEUTROPHILS #(AUTO)-ABSOLUTE 3.1 T/MM3 (1.8-7.7); NEUTROPHILS % (AUTO) 54.5 % (33-66); RED BLOOD COUNT 4.85 M/MM3 (4.50-5.90); WBC - WHITE BLOOD COUNT 5.6 T/MM3 (4.5-11.0)
--- OUTSIDE RECORDS SUMMARY | 2016-09-17 16:39 | XMS REPORT | Continuity of Care Document ---
Author Author [facility] Organization [facility] Address Unknown Phone Unavailable Allergies Active Description [...] Status Pt. Type Provider Facility Loc./Unit Complaint [id number] 07/06/2013 15:58:00 07/06/2013 23 :59:59 CLS Outpatient [id number] 06/28/2013 15:49:00 06/28/2013 23 :59:59 CLS Outpatient [id number] 05/07/2013 13:22:00 05/07/2013 23 :59:59 CLS Outpatient [id number] 04/30/2013 13:32:00 04/30/2013 23 :59:59 CLS Outpatient
[2016-09-17 16:41] LABS: ALBUMIN 4.7 G/DL (3.5-5.0); ALBUMIN/GLOBULIN RATIO 1.8 RATIO (1.1-2.2); ALKALINE PHOSPHATASE 67 U/L (38-126); ALT (SGPT) 56 U/L (21-72); ANION GAP 14 MEQ/L (5-15); AST (SGOT) 38 U/L (17-59); BUN/CREATININE RATIO 26 RATIO (6-26); CALCIUM 9.4 MG/DL (8.4-10.2); CHLORIDE 108 MEQ/L (98-107); CO2 - CARBON DIOXIDE 26 MEQ/L (22-30); CREATININE 0.9 MG/DL (0.8-1.5); GLOMERULAR FILTRATION RATE 87; GLUCOSE 104 MG/DL (75-110); POTASSIUM 3.9 MEQ/L (3.6-5); SODIUM 148 MEQ/L (134-144); TOTAL PROTEIN 7.3 G/DL (6.3-8.2)
--- OUTSIDE RECORDS SUMMARY | 2016-09-17 16:41 | XMS REPORT | Continuity of Care Document ---
Author Author [facility] Organization [facility] Address Unknown Phone Unavailable Support Name Relationship Address Phone KENDRICK COHEN MD Caregiver [facility] [address] [place] [address] Unavailable GABBI CAM MD Caregiver [address] [place] [address] [place] [phone] [id number] Next Of Kin [address] [place], [place] [id number] CP Insurance Providers Payer Name Policy Number Subscriber Name Relationship [facility] [id number] Marah Blankenship 20 Self Problems Medical Problems [...] F (96.8 - 99.1) Temperature (Calculated Celsius) [phone] degrees C (36.0 - 37.3) Pulse Rate [...] Report May 14, 2011 3:58pm REFERENCE LAB [id number] - Lipase March 03, 2013 4:43pm 160 [...] 16, 2013 4:30am 10.1 % H 0-9.0 OB-Tkl-G-Type Natriuretic Peptide November 16, 2013 4:30am 487 [...] Has specimen been collected/obtained? Y Urine Specific Bernie May 05, 2011 4:50pm 1.025 - Has [...] Encounters Encounter Location Date/Time Registered Emergency Room [facility] 11/16/13 3:44am Recent Diagnosis
[2016-09-17 16:49] LABS: PROBNP 68 PG/ML (0-175)
--- NOTE | 2016-09-17 16:50 | NUR ---
CALF MEASUREMENTS L CALF 17 06/26" RT CALF 17 04/26"
[2016-09-17] MEDS: NORMAL SALINE 1,000 ML IV ONE (17:09)
--- NOTE | 2016-09-17 17:20 | NUR ---
REPORT TO YAYA DYER
--- NOTE | 2016-09-17 17:45 | NUR ---
IV FLUID IV FLUID BOLUS OF 500 CC INFUSED.
[2016-09-17 18:18] VITALS: BP 131/66; PULSE 83; RESP 18; O2SAT 95
--- NOTE | 2016-09-17 18:18 | NUR ---
DISCHARGE PT GIVEN INSTRUCTIONS FOR CONT CARE OF VARICOSE VEINS, PT VERBALIZED UNDERSTANDING AND SIGNED FORM. PT LEFT ER AMBULATORY, ALERT, VS CHARTED IN NO ACUTE DISTRESS W/ CONDITION IMPROVED.
--- NOTE | 2016-09-18 11:55 | DI ---
Indication: ITS.REASON: chest pain PROCEDURE: CHEST 1 VIEW: Encounter: Initial Comparison: November 16, 2013 FINDINGS: The lungs are clear. There is no abnormal airspace opacity, pleural effusion or pneumothorax identified. The heart size, pulmonary vasculature and mediastinum are within normal limits. Suture anchors in the right humeral head. IMPRESSION: No acute cardiopulmonary abnormality. .
== END 2016-09-17 18:18 | disposition home or self-care (01) ==
LOC: ED 16:03
DX: R07.89 Other chest pain (principal); R20.2 Paresthesia of skin; I83.891 Varicose veins of right lower extremity with other complications; I10 Essential (primary) hypertension
CPT/HCPCS: 71010; 80053; 83880; 84484; 85025; 85379; 93005; 96360; 99284; J7030